=== PATIENT | female | born 1975 | race Caucasian/White ===

== ENCOUNTER 2016-12-08 12:16 | Emergency (ER) | payer OTHER ==
[~2016-12-08] VITALS: Ht 165.1 cm; Wt 74.4 kg
[~2016-12-08 12:16] MED LIST: GLUCOPHAGE XR500 MG PO; GOOD SENSE OMEP20 MG PO; METAMUCIL FIBE3.4 GM GT; MOT800 PO; SIMVASTATIN10 M1; TRA50 PO; ULT50 PO; VIC PO; ZOL50 PO
[2016-12-08 15:28] LABS: BASOPHIL % 0.6 % (0-2); PLATELET COUNT 286 x10^3mcL (130-400)
[2016-12-08 15:31] LABS: RED CELL DISTRIBUTION WIDTH 14.9 % (11.5-14.5)
[2016-12-08 15:44] LABS: ALKALINE PHOSPHATASE 43 U/L (46-116); ALT/SGPT 22 U/L (14-59); AMYLASE 54 U/L (25-115); AST/SGOT 13 U/L (15-37); BILIRUBIN TOTAL 0.3 mg/dL (0.20-1.00); CARBON DIOXIDE 29.6 mmol/L (21-32); CHLORIDE SERUM 101 mmol/L (98-107); CREATININE SERUM 0.9 mg/dL (0.6-1.0); GFR1 > 60 mL/min; GLUCOSE SERUM 101 mg/dL (74-106); LIPASE 62 IU/L (73-393); POTASSIUM SERUM 3.7 mmol/L (3.5-5.1); SODIUM SERUM 137 mmol/L (136-145); TOTAL PROTEIN, SERUM 6.6 g/dL (6.4-8.2)
[2016-12-08 15:47] LABS: ALBUMIN 3.2 g/dL (3.4-5.0)
[2016-12-08 15:54] LABS: CALCIUM 8.7 mg/dL (8.5-10.1)
[2016-12-08 19:03] VITALS: BP 136/87
== END 2016-12-08 19:03 | disposition home or self-care (01) ==
LOC: ED 12:16
PROVIDERS: Specialist
DX: N83.202 Unspecified ovarian cyst, left side (principal); N83.201 Unspecified ovarian cyst, right side; D25.9 Leiomyoma of uterus, unspecified; F10.20 Alcohol dependence, uncomplicated; E78.00 Pure hypercholesterolemia, unspecified; E11.9 Type 2 diabetes mellitus without complications; Z91.419 Personal history of unspecified adult abuse
CPT/HCPCS: J0696; J1170; J1885; J2405; J3010; J7030

== ENCOUNTER 2016-12-17 13:02 | Emergency (ER) | payer OTHER ==
[2016-12-17 15:20] LABS: BASOPHIL % 1.3 % (0-2); PLATELET COUNT 293 x10^3mcL (130-400)
[2016-12-17 15:22] LABS: RED CELL DISTRIBUTION WIDTH 15.2 % (11.5-14.5)
[2016-12-17 15:27] LABS: CALCIUM 8.9 mg/dL (8.5-10.1); CHLORIDE SERUM 103 mmol/L (98-107); CREATININE SERUM 0.9 mg/dL (0.6-1.0); GFR1 > 60 mL/min; GLUCOSE SERUM 92 mg/dL (74-106); POTASSIUM SERUM 3.8 mmol/L (3.5-5.1); SODIUM SERUM 140 mmol/L (136-145)
[2016-12-17 15:34] LABS: ALBUMIN 3.7 g/dL (3.4-5.0); ALKALINE PHOSPHATASE 48 U/L (46-116); ALT/SGPT 30 U/L (14-59); AST/SGOT 25 U/L (15-37); BILIRUBIN TOTAL 0.3 mg/dL (0.20-1.00); TOTAL PROTEIN, SERUM 7.4 g/dL (6.4-8.2)
[2016-12-17 18:52] VITALS: BP 108/44
== END 2016-12-17 18:52 | disposition home or self-care (01) ==
LOC: ED 13:02
PROVIDERS: Emergency Medicine
DX: N83.202 Unspecified ovarian cyst, left side (principal); N83.201 Unspecified ovarian cyst, right side; K62.5 Hemorrhage of anus and rectum; F10.20 Alcohol dependence, uncomplicated; I10 Essential (primary) hypertension; E11.9 Type 2 diabetes mellitus without complications; Z87.42 Personal history of other diseases of the female genital tract
CPT/HCPCS: J1885; J2270; J2405; J7030

== ENCOUNTER 2017-09-05 13:53 | Emergency (ER) | payer OTHER ==
[2017-09-05 17:08] LABS: BASOPHIL % 0.6 % (0-2); PLATELET COUNT 275 x10^3mcL (130-400)
[2017-09-05 17:10] LABS: CARBON DIOXIDE 24.7 mmol/L (21-32); CHLORIDE SERUM 100 mmol/L (98-107); CREATININE SERUM 0.9 mg/dL (0.6-1.0); GFR1 > 60 mL/min; GLUCOSE SERUM 191 mg/dL (74-106); POTASSIUM SERUM 3.3 mmol/L (3.5-5.1); SODIUM SERUM 137 mmol/L (136-145)
[2017-09-05 17:14] LABS: RED CELL DISTRIBUTION WIDTH 17.2 % (11.5-14.5)
[2017-09-05 17:16] LABS: ALBUMIN 3.5 g/dL (3.4-5.0); ALKALINE PHOSPHATASE 68 U/L (46-116); ALT/SGPT 31 U/L (14-59); AST/SGOT 26 U/L (15-37); BILIRUBIN TOTAL 0.19 mg/dL (0.20-1.00); LIPASE 83 IU/L (73-393); TOTAL PROTEIN, SERUM 7.5 g/dL (6.4-8.2)
[2017-09-05 17:33] VITALS: BP 119/71
== END 2017-09-05 17:45 | disposition home or self-care (01) ==
LOC: ED 13:53
PROVIDERS: Emergency Medicine
DX: K29.70 Gastritis, unspecified, without bleeding (principal); R07.9 Chest pain, unspecified; I10 Essential (primary) hypertension; E11.9 Type 2 diabetes mellitus without complications; E78.00 Pure hypercholesterolemia, unspecified; K21.9 Gastro-esophageal reflux disease without esophagitis; Z91.010 Allergy to peanuts
CPT/HCPCS: 36415; Q0162

== ENCOUNTER 2018-03-24 09:04 | Emergency (ER) | payer OTHER ==
[~2018-03-24] VITALS: Ht 165.1 cm; Wt 72.6 kg
[2018-03-24 09:07] VITALS: Ht 165.1 cm; Wt 72.6 kg
[2018-03-24 10:46] LABS: BASOPHIL % 1.2 % (0-2); PLATELET COUNT 175 x10^3mcL (130-400)
[2018-03-24 10:47] LABS: RED CELL DISTRIBUTION WIDTH 18.6 % (11.5-14.5)
[2018-03-24 11:08] LABS: ALBUMIN 3.3 g/dL (3.4-5.0); ALKALINE PHOSPHATASE 87 U/L (46-116); ALT/SGPT 24 U/L (14-59); AST/SGOT 22 U/L (15-37); BILIRUBIN TOTAL 0.49 mg/dL (0.20-1.00); CALCIUM 8.4 mg/dL (8.5-10.1); CARBON DIOXIDE 28.5 mmol/L (21-32); CHLORIDE SERUM 101 mmol/L (98-107); CREATININE SERUM 0.8 mg/dL (0.6-1.0); GFR1 > 60 mL/min; GLUCOSE SERUM 158 mg/dL (74-106); LIPASE 125 IU/L (73-393); SODIUM SERUM 138 mmol/L (136-145); TOTAL PROTEIN, SERUM 7.1 g/dL (6.4-8.2)
[2018-03-24 12:10] VITALS: BP 120/90
== END 2018-03-24 12:10 | disposition home or self-care (01) ==
LOC: ED 09:04
PROVIDERS: Emergency Medicine
DX: M54.6 Pain in thoracic spine (principal); R10.13 Epigastric pain; E11.9 Type 2 diabetes mellitus without complications; I10 Essential (primary) hypertension; E78.00 Pure hypercholesterolemia, unspecified; Z90.49 Acquired absence of other specified parts of digestive tract; Z91.010 Allergy to peanuts
CPT/HCPCS: G0480; J2405; J3490

== ENCOUNTER 2019-05-04 10:03 | Emergency (ER) | payer OTHER ==
[~2019-05-04] VITALS: Ht 162.6 cm; Wt 67.1 kg
[2019-05-04 10:06] VITALS: Ht 162.6 cm; Wt 67.1 kg
[2019-05-04 11:07] LABS: BASOPHIL % 1.2 % (0-2); PLATELET COUNT 277 x10^3mcL (130-400)
[2019-05-04 11:10] LABS: RED CELL DISTRIBUTION WIDTH 15.4 % (11.5-14.5)
[2019-05-04 11:12] LABS: CALCIUM 8.9 mg/dL (8.5-10.1); CARBON DIOXIDE 26.7 mmol/L (21-32); CHLORIDE SERUM 104 mmol/L (98-107); CREATININE SERUM 0.8 mg/dL (0.6-1.0); GFR1 > 60 mL/min; GLUCOSE SERUM 142 mg/dL (74-106); POTASSIUM SERUM 4.2 mmol/L (3.5-5.1); SODIUM SERUM 139 mmol/L (136-145)
[2019-05-04 11:19] LABS: ALKALINE PHOSPHATASE 52 U/L (46-116); ALT/SGPT 19 U/L (14-59); AST/SGOT 11 U/L (15-37); TOTAL PROTEIN, SERUM 6.9 g/dL (6.4-8.2)
[2019-05-04 11:23] LABS: ALBUMIN 3.1 g/dL (3.4-5.0)
[2019-05-04 13:34] VITALS: BP 127/82
== END 2019-05-04 13:34 | disposition home or self-care (01) ==
LOC: ED 10:03
PROVIDERS: Emergency Medicine
DX: K62.5 Hemorrhage of anus and rectum (principal); R31.29 Other microscopic hematuria; R07.89 Other chest pain; N93.9 Abnormal uterine and vaginal bleeding, unspecified; I10 Essential (primary) hypertension; E11.9 Type 2 diabetes mellitus without complications; E78.00 Pure hypercholesterolemia, unspecified; K21.9 Gastro-esophageal reflux disease without esophagitis; Z91.010 Allergy to peanuts
CPT/HCPCS: 36415

== ENCOUNTER 2019-05-28 21:37 | Emergency (ER) | payer OTHER ==
[~2019-05-28] VITALS: Ht 162.6 cm; Wt 64.4 kg
[2019-05-28 22:02] VITALS: BP 113/65; Ht 162.6 cm; Wt 64.4 kg
== END 2019-05-29 00:52 | disposition left against medical advice (07) ==
LOC: ED 21:37
DX: Z53.21 Procedure and treatment not carried out due to patient leaving prior to being seen by health care provider (principal)

== ENCOUNTER 2019-07-18 11:01 | Emergency (ER) | payer OTHER ==
[~2019-07-18] VITALS: Ht 162.6 cm; Wt 66.2 kg
[2019-07-18 12:16] LABS: CALCIUM 8.1 mg/dL (8.5-10.1); CARBON DIOXIDE 26.6 mmol/L (21-32); CHLORIDE SERUM 106 mmol/L (98-107); CREATININE SERUM 0.9 mg/dL (0.6-1.0); GFR1 > 60 mL/min; GLUCOSE SERUM 157 mg/dL (74-106); POTASSIUM SERUM 4.4 mmol/L (3.5-5.1); SODIUM SERUM 139 mmol/L (136-145)
[2019-07-18 12:20] LABS: ALBUMIN 3.3 g/dL (3.4-5.0); ALKALINE PHOSPHATASE 60 U/L (46-116); ALT/SGPT 23 U/L (14-59); AST/SGOT 15 U/L (15-37); BILIRUBIN TOTAL 0.2 mg/dL (0.20-1.00)
[2019-07-18 12:34] LABS: BASOPHIL % 0.5 % (0-2); PLATELET COUNT 315 x10^3mcL (130-400)
[2019-07-18 12:36] LABS: RED CELL DISTRIBUTION WIDTH 15.1 % (11.5-14.5)
[2019-07-18 13:38] VITALS: BP 118/79
== END 2019-07-18 13:38 | disposition home or self-care (01) ==
LOC: ED 11:01
PROVIDERS: Emergency Medicine
DX: R07.89 Other chest pain (principal); I10 Essential (primary) hypertension; E11.9 Type 2 diabetes mellitus without complications; E78.00 Pure hypercholesterolemia, unspecified; K21.9 Gastro-esophageal reflux disease without esophagitis; Z90.49 Acquired absence of other specified parts of digestive tract; Z91.010 Allergy to peanuts
CPT/HCPCS: J1885; Q0092

== ENCOUNTER 2020-01-31 09:24 | Emergency (ER) | payer OTHER, SELFPAY ==
[~2020-01-31] VITALS: Ht 165.1 cm; Wt 68.5 kg
[2020-01-31 09:34] VITALS: Ht 165.1 cm; Wt 68.5 kg
[2020-01-31 10:13] LABS: CALCIUM 8.1 mg/dL (8.5-10.1); CARBON DIOXIDE 25.9 mmol/L (21-32); CHLORIDE SERUM 100 mmol/L (98-107); CREATININE SERUM 0.8 mg/dL (0.6-1.0); GFR1 > 60 mL/min; GLUCOSE SERUM 197 mg/dL (74-106); POTASSIUM SERUM 3.9 mmol/L (3.5-5.1); SODIUM SERUM 137 mmol/L (136-145)
[2020-01-31 10:19] LABS: ALKALINE PHOSPHATASE 46 U/L (46-116); ALT/SGPT 22 U/L (14-59); AST/SGOT 14 U/L (15-37); BILIRUBIN TOTAL 0.2 mg/dL (0.20-1.00); TOTAL PROTEIN, SERUM 6.4 g/dL (6.4-8.2)
[2020-01-31 10:20] LABS: ALBUMIN 3.1 g/dL (3.4-5.0)
[2020-01-31 10:30] LABS: PLATELET COUNT 347 x10^3mcL (130-400); RED CELL DISTRIBUTION WIDTH 16.1 % (11.5-14.5)
[2020-01-31 11:03] LABS: UA SPECIFIC GRAVITY <=1.005 (1.005-1.035); microscopic required? YES; urine erythrocyte 3+ (NEGATIVE)
[2020-01-31 11:56] VITALS: BP 133/80
== END 2020-01-31 11:56 | disposition home or self-care (01) ==
LOC: ED 09:24
PROVIDERS: Emergency Medicine
DX: G43.909 Migraine, unspecified, not intractable, without status migrainosus (principal); R42 Dizziness and giddiness; E11.9 Type 2 diabetes mellitus without complications; I10 Essential (primary) hypertension; E78.00 Pure hypercholesterolemia, unspecified; K21.9 Gastro-esophageal reflux disease without esophagitis; Z90.49 Acquired absence of other specified parts of digestive tract; Z91.010 Allergy to peanuts
CPT/HCPCS: 36415; Q0162

== ENCOUNTER 2020-05-29 03:18 | Emergency (ER) | payer OTHER ==
[~2020-05-29] VITALS: Ht 162.6 cm; Wt 72.6 kg
[2020-05-29 03:24] VITALS: Ht 162.6 cm; Wt 72.6 kg
[2020-05-29 04:59] LABS: CALCIUM 9.3 mg/dL (8.5-10.1); CARBON DIOXIDE 28.1 mmol/L (21-32); CHLORIDE SERUM 101 mmol/L (98-107); CREATININE SERUM 1.2 mg/dL (0.6-1.0); GFR1 51 mL/min; GLUCOSE SERUM 164 mg/dL (74-106); POTASSIUM SERUM 3.5 mmol/L (3.5-5.1); SODIUM SERUM 137 mmol/L (136-145)
[2020-05-29 05:03] LABS: ALBUMIN 3.9 g/dL (3.4-5.0); ALKALINE PHOSPHATASE 60 U/L (46-116); ALT/SGPT 36 U/L (14-59); AST/SGOT 23 U/L (15-37); BILIRUBIN TOTAL 0.6 mg/dL (0.20-1.00); TOTAL PROTEIN, SERUM 7.6 g/dL (6.4-8.2)
[2020-05-29 05:05] LABS: BASOPHIL % 0.6 % (0-2); PLATELET COUNT 326 x10^3mcL (130-400)
[2020-05-29 05:12] LABS: RED CELL DISTRIBUTION WIDTH 15.6 % (11.5-14.5)
[2020-05-29 08:10] LABS: microscopic required? YES; urine erythrocyte 2+ (NEGATIVE)
[2020-05-29 08:13] LABS: AMPHETAMINE QUAL UR POSITIVE (See below)
[2020-05-29 12:10] VITALS: BP 122/77
== END 2020-05-29 12:06 | disposition home or self-care (01) ==
LOC: ED 03:18
PROVIDERS: Emergency Medicine
DX: N39.0 Urinary tract infection, site not specified (principal); F22 Delusional disorders
CPT/HCPCS: G0480; J1630; J2060; U0003-CS